=== PATIENT | female | born 1995 | race Caucasian/White ===

== ENCOUNTER 2019-01-30 04:45 | Emergency (ER) | payer BC ==
[~2019-01-30] VITALS: Ht 142.2 cm; Wt 74.6 kg
[~2019-01-30 04:45] MED LIST: CALC0.5C10 PO; CEPH-443 PO; HYDR12.53 PO; IBUP-1542 PO; LORA-441 PO; RANI150T35 PO; SUCR1TAB56 PO; TYL500 PO
[2019-01-30 04:55] VITALS: Ht 142.2 cm; Wt 74.6 kg
[2019-01-30] MEDS ORDERED: LIDOCAINE 1% (MPF) 5 ML VIAL INJ ONE (12:00)
[2019-01-30] MEDS ORDERED: IBUP-1542 PO (12:00)
[2019-01-30] MEDS ORDERED: CIPR500T4 PO ×2 (12:00→12:34)
[2019-01-30] MEDS ORDERED: CEFTRIAXONE 1 GM INJ IM ONE (12:00)
[2019-01-30] MEDS ORDERED: SULF1TAB31 PO (12:06)
[2019-01-30] MEDS ORDERED: CEPH-443 PO (12:06)
--- NOTE | 2019-01-30 12:13 | ERD ---
ER Documentation Chief Complaint Chief Complaint c/o RLQ abd pain + Right flank pain x 1hr. HPI 23-year-old female patient with a past medical history of rickets, nephrolithiasis presents the ED complaining of right flank, right lower quadrant abdominal pain. Patient reports that it feels like an achy type sensation and rates it a 10 out of 10. States that she just got surgery for her rickets on January 19, 2019. Reports that she has followed up with her orthopedic physician. Reports that she feels nauseous but denies any vomiting or diarrhea. Reports that her last menstruation is on January 16, 2019. States that she is taking Chrisvita, and vitamin D. ROS All systems reviewed and are negative except as per history of present illness. Medications Home Meds Active Scripts Ciprofloxacin Hcl* (Ciprofloxacin Hcl*) 500 Mg Tablet, 500 MG PO BID for 10 Days, TAB Prov:VINITA CHASE PA-C 01/30/19 Cephalexin* (Keflex*) 500 Mg Capsule, 500 MG PO QID for 10 Days, CAP Prov:VINITA CHASE PA-C 01/30/19 Ibuprofen* (Motrin*) 600 Mg Tab, 600 MG PO Q6, #30 TAB Prov:VINITA CHASE PA-C 01/30/19 Cephalexin* (Keflex*) 500 Mg Capsule, 500 MG PO QID for 5 Days, CAP Prov:RASHAD MUNGUIA MD 04/08/16 Lorazepam* (Ativan*) 0.5 Mg Tablet, 0.5 MG PO Q8, #16 TAB Prov:RASHAD MUNGUIA MD 04/08/16 Ibuprofen* (Motrin*) 600 Mg Tab, 600 MG PO Q6, #20 TAB Prov:TEMI RINCON MD 01/25/16 Acetaminophen* (Tylenol*) 500 Mg Tab, 500 MG PO Q4H PRN for MILD PAIN LEVEL 1-3, #30 TAB Prov:TAYLOR LIPSCOMB PA-C 01/23/16 Ranitidine Hcl* (Zantac*) 150 Mg Tablet, 150 MG PO BID PRN for GASTROINTESTINAL UPSET, #30 TAB Prov:WILLIAMS QUINTANA 12/25/15 Sucralfate* (Carafate*) 1 Gm Tab, 1 GM PO QID, #30 TAB Prov:WILLIAMS QUINTANA 12/25/15 Reported Medications Calcitriol* (Calcitriol*) 0.5 Mcg Capsule, 0.5 MCG PO BID, CAP 12/25/15 Hydrochlorothiazide (Hydrochlorothiazide) 12.5 Mg Capsule, 12.5 MG PO DAILY 08/25/11 Allergies Allergies: Coded Allergies: shrimp (Verified Allergy, Severe, 01/30/19) PMhx/Soc History of Surgery: Yes (FOR TERRY 2010,2007 of the bilateral lower extremities) Anesthesia Reaction: No Hx Neurological Disorder: No Hx Respiratory Disorders: No Hx Cardiac Disorders: No Hx Psychiatric Problems: No Hx Miscellaneous Medical Probl: No (TERRY) Hx Alcohol Use: No Hx Substance Use: No Hx Tobacco Use: No Smoking Status: Never smoker FmHx Family History: No diabetes, No coronary disease Physical Exam Vitals Vital Signs Date Temp Pulse Resp B/P (MAP) Pulse Ox O2 O2 Flow FiO2 Time Delivery Rate 01/30/19 97.1 84 18 113/67 100 04:55 (82) Physical Exam Const: [id number], well-nourished. In no acute distress. Head: Atraumatic, normocephalic Eyes: Normal Conjunctiva without injection. No purulent discharge. ENT: Normal external ear, nose. Moist oropharynx without tonsillar exudates. Non-erythematous pharynx. Uvula midline. No drooling. No trismus. Neck: No cervical midline tenderness. Full range of motion. No meningismus. No cervical lymphadenopathy. No JVD. Resp: Clear to auscultation bilaterally. No wheezing, rhonchi, rales, or crackles. No accessory muscle use. No retractions. Cardio: Regular rate and rhythm. No murmurs, rubs or gallops. Abd: Soft, right lower quadrant and right upper quadrant abdominal pain. Non distended. Normal bowel sounds. No palpable masses. No rebound tenderness. No guarding. Negative McBurney's point. Negative psoas sign. Negative obturator sign. Skin: No petechiae or rashes Back: No midline tenderness. No CVA tenderness. Ext: No cyanosis, or edema. Neur: Awake and alert. Normal gait. Normal coordination. Psych: Normal Mood and Affect Results 24 hrs Laboratory Tests Test 01/30/19 06:49 01/30/19 07:03 01/30/19 09:04 Urine Color JACOB Urine Clarity CLOUDY Urine pH 8.0 Urine Specific [place] 1.025 Urine Ketones TRACE mg/dL Urine Nitrite NEGATIVE mg/dL Urine Bilirubin NEGATIVE mg/dL Urine Urobilinogen NEGATIVE mg/dL Urine Leukocyte Esterase TRACE Evelyn/ul Urine Microscopic RBC 115 /HPF Urine Microscopic WBC 25 /HPF Urine Squamous Epithelial Cells FEW /HPF Urine Amorphous Crystals FEW /HPF Urine Bacteria FEW /HPF Urine Mucus MODERATE /HPF Urine Hemoglobin 3+ mg/dL Urine Glucose NEGATIVE mg/dL Urine Total Protein 1+ mg/dl White Blood Count 18.1 10^3/ul Red Blood Count 4.27 10^6/ul Hemoglobin 12.8 g/dl Hematocrit 38.4 % Mean Corpuscular Volume 89.9 fl Mean Corpuscular Hemoglobin 30.0 pg Mean Corpuscular 33.3 g/dl Hemoglobin Concent Red Cell Distribution Width 12.9 % Platelet Count 321 10^3/UL Mean Platelet Volume 9.8 fl Immature Granulocytes % 1.000 % Neutrophils % 88.0 % Lymphocytes % 7.1 % Monocytes % 3.3 % Eosinophils % 0.2 % Basophils % 0.4 % Nucleated Red Blood Cells % 0.0 /100WBC Immature Granulocytes # 0.190 10^3/ul Neutrophils # 15.9 10^3/ul Lymphocytes # 1.3 10^3/ul Monocytes # 0.6 10^3/ul Eosinophils # 0.0 10^3/ul Basophils # 0.1 10^3/ul Nucleated Red Blood Cells # 0.0 10^3/ul Sodium Level 143 mmol/L Potassium Level 4.3 mmol/L Chloride Level 105 mmol/L Carbon Dioxide Level 27 mmol/L Anion Gap 11 Blood Urea Nitrogen 14 mg/dl Creatinine 0.37 mg/dl Est Glomerular Filtrat > 60 mL/min Rate mL/min Glucose Level 108 mg/dl Calcium Level 9.4 mg/dl Total Bilirubin 0.5 mg/dl Direct Bilirubin 0.00 mg/dl Indirect Bilirubin 0.5 mg/dl Aspartate Amino 80 IU/L Transf (AST/SGOT) Alanine 42 IU/L Aminotransferase (ALT/SGPT) Alkaline Phosphatase 161 IU/L Total Protein 7.3 g/dl Albumin 4.1 g/dl Globulin 3.20 g/dl Albumin/Globulin Ratio 1.28 Lipase 98 U/L POC Beta HCG, Qualitative NEGATIVE Current Medications Medications Dose Sig/Cindy Start Time Status Last (Trade) Ordered Route PRN Stop Time Admin Dose Reason Admin Ceftriaxone 1 gm ONCE ONCE 01/30/19 DC 01/30/19 Sodium IM 12:00 12:33 (Rocephin) 01/30/19 12:01 Lidocaine 5 ml ONCE ONCE 01/30/19 DC 01/30/19 (Xylocaine INJ 12:00 12:33 1% (Mpf)) 01/30/19 12:01 Procedures/MDM 23-year-old female patient with no significant past medical history presents to ED complaining of right lower quadrant, right upper quadrant and right flank pain that started about 2 days ago. Patient is afebrile and nontoxic-appearing. Patient was further worked up with CBC, CMP, lipase, UA, CT of the abdomen. CBC: No leukocytosis. No e/o of systemic infection. No e/o anemia. CMP: No e/o severe acidosis, alkalosis, renal failure, diabetic ketoacidosis, liver disease Lipase within normal limits. Urine: trace leukocyte esterase, no nitrites, 3+ hematuria. Urine : Negative She was noted to have cholelithiasis as well as nephrolithiasis. Patient does have a urinary tract infection with trace leukocyte esterase, 3+ hematuria. Patient will be appropriate for treatment outpatient. Patient also recently got surgery for her rickets and was noted to have surgical incisions on the right lateral aspect of her thigh. The incision by her left hip appears to have some erythema and slight warmth. Discussed with my supervising physician Dr. Jefferson who agreed with the management discharge plan. Patient was treated here in the ED with ceftriaxone 1 g. Patient has good range of motion and did follow-up with her orthopedic physician and she stated that the surgeon was not concerned about any infection. Low suspicion for ectopic , ovarian torsion, gastritis, GERD, peptic ulcer disease, cholecystitis, choledocholithiasis, cholangitis, pancreatitis, appendicitis, bowel obstruction, ileus, volvulus, nephrolithiasis, pyelonephritis, hepatitis, perforated viscus, diverticulitis, strangulated/incarcerated hernia, DKA, acute abdomen, mesenteric ischemia or ot her emergent conditions. Diagnosis: Right flank pain Discharge medications: Ciprofloxacin, Ibuprofen, Keflex Follow up with primary care physician in 1-2 days for referral to inspector fabric. Instructed patient to return to the ED sooner for any worsen ing symptoms. Patient's questions were answered. Patient understood and agreed with discharge plan. Patient discharged stable. Departure Diagnosis: Primary Impression: Right flank pain Condition: Stable Patient Instructions: What Are Gallstones?, Urinary Tract Infections in Women, Understanding Kidney Stones, Cellulitis Referrals: [facility] YOU HAVE RECEIVED A MEDICAL SCREENING EXAM AND THE RESULTS INDICATE THAT YOU DO NOT HAVE A CONDITION THAT REQUIRES URGENT TREATMENT IN THE EMERGENCY DEPARTMENT. FURTHER EVALUATION AND TREATMENT OF YOUR CONDITION CAN WAIT UNTIL YOU ARE SEEN IN YOUR DOCTORS OFFICE WITHIN THE NEXT 1-2 DAYS. IT IS YOUR RESPONSIBILITY TO MAKE AN APPOINTMENT FOR FOLOW-UP CARE. IF YOU HAVE A PRIMARY DOCTOR --you should call your primary doctor and schedule an appointment IF YOU DO NOT HAVE A PRIMARY DOCTOR YOU CAN CALL OUR PHYSICIAN REFERRAL HOTLINE AT IF YOU CAN NOT AFFORD TO SEE A PHYSICIAN YOU CAN CHOSE FROM THE FOLLOWING [facility] [address] [facility]. [facility] [address] [facility]. [facility] [address] [facility] [facility] [address] [facility] [facility] [address] [facility]. [facility]. [address] [facility]. [facility] YOU HAVE RECEIVED A MEDICAL SCREENING EXAM AND THE RESULTS INDICATE THAT YOU DO NOT HAVE A CONDITION THAT REQUIRES URGENT TREATMENT IN THE EMERGENCY DEPARTMENT. FURTHER EVALUATION AND TREATMENT OF YOUR CONDITION CAN WAIT UNTIL YOU ARE SEEN IN YOUR DOCTORS OFFICE WITHIN THE NEXT 1-2 DAYS. IT IS YOUR RESPONSIBILITY TO MAKE AN APPOINTMENT FOR FOLOW-UP CARE. IF YOU HAVE A PRIMARY DOCTOR --you should call your primary doctor and schedule and appointment IF YOU DO NOT HAVE A PRIMARY DOCTOR YOU CAN CALL OUR PHYSICIAN REFERRAL HOTLINE AT . IF YOU CAN NOT AFFORD TO SEE A PHYSICIAN YOU CAN CHOSE FROM THE FOLLOWING [facility] INSTITUTIONS: [facility] [address] [place] [address] [facility] [address] [place] [address] [facility] + [facility] [address] [place] [address] [facility] Additional Instructions: Call your primary care doctor TOMORROW for an appointment during the next 2-3 days.See the doctor sooner or return here if your condition worsens before your appointment time. VINITA CHASE PA-C Jan 30, 2019 12:13
[2019-01-30 12:42] VITALS: BP 103/64; PULSE 96; RESP 18
== END 2019-01-30 13:26 | disposition home or self-care (01) ==
LOC: FTE 04:45
DX: R10.31 Right lower quadrant pain (principal)
CPT/HCPCS: 36415; 74176; 76700; 80053; 81001; 81025; 83690; 85025; 96372; 99285; J0696; Z7610